=== PATIENT | female | born 1965 | race Caucasian/White ===

== ENCOUNTER → 2016-12-11 | Outpatient (CLI) | payer OTHER | LOC: LAB.O 13:32 | PROVIDERS: ATTEND Nurse Practitioner Family | DX: E11.65 Type 2 diabetes mellitus with hyperglycemia (principal); I10 Essential (primary) hypertension ==

== ENCOUNTER → 2017-05-06 | Outpatient (CLI) | payer OTHER ==
--- NOTE | 2017-05-07 04:31 | RAD ---
Examination: XR ANKLE 3 OR MORE VIEWS dated 05/06/2017 9:09 AM MANAGER ATHLETICS History: ARTHRALGIA OF THE ANKLE AND OR FOOT Comparison: None Technique: Three views of the left ankle FINDINGS AND IMPRESSION: There is slight lucency along the medial aspect of the talar dome suspicious for osteochondral defect. Ankle mortise is symmetric. There is suggestion of a small ankle joint effusion. Enthesopathic spurring of the Achilles tendon. Small plantar calcaneal spur. Electronically signed by: Ceasar Carter MD 05/07/2017 4:29 AM MANAGER ATHLETICS
--- NOTE | 2017-05-07 04:32 | RAD ---
Examination: XR FOOT 3 OR MORE VIEWS dated 05/06/2017 9:09 AM [employer] History: ARTHRALGIA OF THE ANKLE AND OR FOOT Comparison: None Technique: Three views of the left foot FINDINGS AND IMPRESSION: No acute fracture or dislocation. Joint spaces are preserved. No osseous erosions. Enthesopathic changes of the Achilles tendon. Small plantar calcaneal spur. Electronically signed by: Ceasar Carter MD 05/07/2017 4:31 AM [employer] O[employer]
== END | disposition home or self-care (01) ==
LOC: RAD 09:01
PROVIDERS: ATTEND Nurse Practitioner Family
DX: M25.579 Pain in unspecified ankle and joints of unspecified foot (principal)

== ENCOUNTER → 2017-06-15 | Outpatient (CLI) | payer OTHER | END | disposition home or self-care (01) | LOC: YCFC.O 08:45 | PROVIDERS: ATTEND Nurse Practitioner Family | DX: R50.9 Fever, unspecified (principal) ==

== ENCOUNTER → 2017-12-16 | Outpatient (CLI) | payer OTHER | LOC: YCFC.O 13:18 | PROVIDERS: ATTEND Nurse Practitioner Family | DX: E78.5 Hyperlipidemia, unspecified (principal); I10 Essential (primary) hypertension; E11.9 Type 2 diabetes mellitus without complications ==

== ENCOUNTER → 2018-03-01 | Outpatient (CLI) | payer OTHER | LOC: YCFC.O 14:01 | PROVIDERS: ATTEND Nurse Practitioner Family | DX: E11.65 Type 2 diabetes mellitus with hyperglycemia (principal); E78.5 Hyperlipidemia, unspecified; I10 Essential (primary) hypertension ==